=== PATIENT | female | born 1950 | race Caucasian/White ===

== ENCOUNTER 2017-01-15 13:22 | Emergency (ER) | payer OTHER ==
[~2017-01-15] VITALS: Ht 157.5 cm; Wt 86.2 kg
[2017-01-15] MEDS ORDERED: ALBUTEROL SULF 2.5 MG/0.5ML(0.5%) NEB SOLN NEB ONE (16:45)
[2017-01-15] MEDS ORDERED: IPRATROPIUM BROM 0.5 MG/2.5ML INH SOL NEB ONE (16:45)
[2017-01-15] MEDS ORDERED: cefTRIAXone SOD 1,000 MG VL IM ONE (16:45)
[2017-01-15] MEDS ORDERED: methylPREDNISolone SOD SUCC 125 MG/2 ML VL IM ONE (16:45)
[2017-01-15 18:45] VITALS: BP 126/86
== END 2017-01-15 18:51 | disposition home or self-care (01) ==
LOC: ER 13:25
DX: J40 Bronchitis, not specified as acute or chronic (principal); I10 Essential (primary) hypertension; E11.9 Type 2 diabetes mellitus without complications; D49.6 Neoplasm of unspecified behavior of brain
CPT/HCPCS: 71020; 94640; 96372; 99284; J0696; J2930